=== PATIENT | female | born 1985 | race Caucasian/White ===

== ENCOUNTER 2017-02-18 10:00 | Emergency (ER) | payer OTHER ==
[2017-02-18 10:04] VITALS: RESP 18
[2017-02-18] MEDS ORDERED: SODIUM CHLORIDE 0.9% 1,000 ML IV ONE (10:31)
--- NOTE | 2017-02-18 10:49 | ED ---
General Adult HPI - General Chief complaint: Nausea/Vomiting/Diarrhea Stated complaint: Withdrawals. 12 wks preg Time Seen by Provider: 02/18/17 10:05 Source: patient, RN notes reviewed Mode of arrival: ambulatory Limitations: no limitations - History of Present Illness Initial comments: This is a 31-year-old female presents emergency department stating she has been weaning herself off of her Percocet over the last 2 weeks because she found she was . Patient states she is approximately 12 weeks . Patient states she has been awful shaky and that does not seem to be getting any better. Patient states she started with 4 Percocet a day and over 2 weeks she' s down to 1 Percocet a day. Patient states she is also nauseated and vomiting even though she has Zofran. Patient would like something to try to relax her but when I told her that most things are conjugate and she was understanding. Patient denies any pain patient denies any abdominal pain patient denies any pelvic pain patient denies any vaginal discharge or bleeding. Patient denies any back pain. Patient denies any recent fever chills or cough. Patient denies any shortness of breath. Patient denies any leg swelling or calf pain. - Related Data Home Medications Medication Instructions Recorded Confirmed Dextroamphetamine/Amphetamine 30 mg PO DAILY 01/05/16 02/18/17 [Adderall] [id number]-[id number] Acid 1 cap PO DAILY 02/18/17 02/18/17 [-U Capsule (formulary)] oxyCODONE-APAP 10-325MG [Percocet 1 tab PO TID PRN 02/18/17 02/18/17 10-325 mg] Allergies Allergy/AdvReac Type Severity Reaction Status Date / Time Iodinated Contrast- Oral and Allergy Unknown Verified 02/18/17 10:16 IV Dye hydrocodone [From [facility]] AdvReac Itching Verified 02/18/17 10:16 Review of Systems ROS Statement: Those systems with pertinent positive or pertinent negative responses have been documented in the HPI. ROS Other: All systems not noted in ROS Statement are negative. 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 Patient is nontoxic and well- hydrated and is in no acute distress. ENT: Neck is soft and supple. No significant lymphadenopathy is noted. Oropharynx is clear. Dry mucous membranes. Neck has full range of motion without eliciting any pain. EYES: The sclera were anicteric and conjunctiva were pink and moist. Extraocular movements were intact and pupils were equal round and reactive to light. Eyelids were unremarkable. PULMONARY: Unlabored respirations. Good breath sounds bilaterally. No audible rales rhonchi or wheezing was noted. CARDIOVASCULAR: There is a regular rate and rhythm without any murmurs gallops or rubs. ABDOMEN: Soft and nontender with normal bowel sounds. No palpable organomegaly was noted. There is no palpable pulsatile mass. SKIN: Skin is clear with no lesions or rashes and otherwise unremarkable. NEUROLOGIC: Patient is alert and oriented x3. Cranial nerves II through XII are grossly intact. Motor and sensory are also intact. Normal speech, volume and content. Symmetrical smile. MUSCULOSKELETAL: Normal extremities with adequate strength and full range of motion. No lower extremity swelling or edema. No calf tenderness. LYMPHATICS: No significant lymphadenopathy is noted PSYCHIATRIC: Normal psychiatric evaluation. Normal interpersonal interactions appears functionally intact in deals appropriately with others. No signs of depression. No signs of anxiety. Limitations: no limitations Course Vital Signs 02/18/17 10:02 Temperature 98.1 F Pulse Rate 111 H Respiratory 18 Rate Blood Pressure 140/90 O2 Sat by Pulse 100 Oximetry Medical Decision Making - Medical Decision Making I gave the patient a liter of fluid. And she felt considerably better she still worried about her withdrawal symptoms. - Lab Data Result diagrams: 02/18/17 10:46 02/18/17 10:46 Lab Results 02/18/17 02/18/17 Range/Units 10:46 10:46 WBC 7.7 (3.8-10.6) k/uL RBC 4.40 (3.80-5.40) m/uL Hgb 14.9 (11.4-16.0) gm/dL Hct 42.8 (34.0-46.0) % MCV 97.3 (80.0-100.0) fL MCH 33.8 (25.0-35.0) pg MCHC 34.7 (31.0-37.0) g/dL RDW 13.2 (11.5-15.5) % Plt Count 185 (150-450) k/uL Neutrophils % 74 % Lymphocytes % 19 % Monocytes % 6 % Eosinophils % 0 % Basophils % 0 % Neutrophils # 5.6 (1.3-7.7) k/uL Lymphocytes # 1.4 (1.0-4.8) k/uL Monocytes # 0.5 (0-1.0) k/uL Eosinophils # 0.0 (0-0.7) k/uL Basophils # 0.0 (0-0.2) k/uL Sodium 138 (137-145) mmol/L Potassium 4.3 (3.5-5.1) mmol/L Chloride 105 (98-107) mmol/L Carbon Dioxide 22 (22-30) mmol/L Anion Gap 11 mmol/L BUN 15 (7-17) mg/dL Creatinine 0.60 (0.52-1.04) mg/dL Est GFR (MDRD) Af Amer >60 (>60 ml/min/1.73 sqM) Est GFR (MDRD) Non-Af >60 (>60 ml/min/1.73 sqM) Glucose 85 (74-99) mg/dL Calcium 10.2 (8.4-10.2) mg/dL Total Bilirubin 0.6 (0.2-1.3) mg/dL AST 25 (14-36) U/L ALT 34 (9-52) U/L Alkaline Phosphatase 45 (38-126) U/L Total Protein 7.0 (6.3-8.2) g/dL Albumin 4.3 (3.5-5.0) g/dL Disposition Clinical Impression: Opiate withdrawal Disposition: HOME SELF-CARE Condition: Good Instructions: Opioid Withdrawal (ED) Referrals: Junior Olsen MD [Primary Care Provider] - 1-2 days Time of Disposition: 11:40
[2017-02-18 11:08] LABS: ALT 34 U/L (9-52); AST 25 U/L (14-36); Alkaline Phosphatase 45 U/L (38-126); Anion Gap 11 mmol/L; Blood Urea Nitrogen 15 mg/dL (7-17); Calcium 10.2 mg/dL (8.4-10.2); Carbon Dioxide 22 mmol/L (22-30); Chloride 105 mmol/L (98-107); Glucose 85 mg/dL (74-99); Non-African American GFR(MDRD) >60 (>60 ml/min/1.73 sqM); Potassium 4.3 mmol/L (3.5-5.1); Sodium 138 mmol/L (137-145); Total Bilirubin 0.6 mg/dL (0.2-1.3)
[2017-02-18 11:17] LABS: Basophils % (A) 0 %; CH 34.6; CHCM 35.7; Eosinophils % (A) 0 %; HCT 42.8 % (34.0-46.0); HGB 14.9 gm/dL (11.4-16.0); Luc # (Auto) 0.07; Luc % (Auto) 1; Lymphocytes # (A) 1.4 k/uL (1.0-4.8); Lymphocytes % (A) 19 %; MCH 33.8 pg (25.0-35.0); MCHC 34.7 g/dL (31.0-37.0); MCV 97.3 fL (80.0-100.0); Mean Platelet Volume 7.4; Monocytes # (A) 0.5 k/uL (0-1.0); Monocytes % (A) 6 %; Neutrophils # (A) 5.6 k/uL (1.3-7.7); Neutrophils % (A) 74 %; RDW 13.2 % (11.5-15.5); WBC 7.7 k/uL (3.8-10.6); WBC (Perox) 7.99
[2017-02-18 11:52] VITALS: BP 141/68; PULSE 102; TEMP 98.7
== END 2017-02-18 11:50 | disposition home or self-care (01) ==
LOC: EC 10:00
DX: O99.321 Drug use complicating pregnancy, first trimester (principal); F11.23 Opioid dependence with withdrawal; O21.9 Vomiting of pregnancy, unspecified; O99.341 Other mental disorders complicating pregnancy, first trimester; F90.9 Attention-deficit hyperactivity disorder, unspecified type; Z3A.12 12 weeks gestation of pregnancy; Z79.899 Other long term (current) drug therapy; Z91.041 Radiographic dye allergy status; Z88.5 Allergy status to narcotic agent
CPT/HCPCS: 36415; 80053; 85025; 96360; 99284

== ENCOUNTER → 2017-03-31 | Outpatient (CLI) | payer OTHER ==
[2017-04-01 01:25] LABS: Cardiolipin Ab IgG Interp NEGATIVE (NEGATIVE); Cardiolipin Ab IgM Interp NEGATIVE (NEGATIVE); Cardiolipin IgM Antibody 1.5 U/mL
--- NOTE | 2017-04-01 08:03 | US ---
EXAMINATION TYPE: US OB anatomy transabd DATE OF EXAM: 03/31/2017 COMPARISON: US HISTORY: O36.62X0 Large for dates second trimester TECHNIQUE: Transabdominal (TA) EXAM MEASUREMENTS: GESTATIONAL AGE / DATING Physician Established: (19 weeks/0 days) EDC: 08/25/2017 Dates by LMP: unknown Dates by First Scan: (19 weeks/0 days) EDC: 08/25/2017 Dates by Current Scan for: (19weeks/5 days) EDC: 08/20/2017 SURVEY IUP: Single PLACENTA: Anterior PREVIA: No previa CHAPINCITO: 14.2 cm Normal CERVICAL LENGTH (transabdominal: norm > 3.0cm): 4.8 cm BIOMETRY PRESENTATION: Breech BPD: 4.5 cm 19 weeks / 5 days HC: 17.0 cm 19 weeks / 5 days AC: 14.3 cm 19 weeks / 5 days FL: 3.0 cm 19 weeks / 2 days ESTIMATED WEIGHT IN GRAMS: 295 grams ESTIMATED WEIGHT IN LBS/OZ: 0 lbs. 10 oz. WEIGHT PERCENTAGE BASED ON ESTABLISHED DATE: 74 % HC/AC: 1.2 Normal FL/AC: 21% Normal HEART RATE: 146 bpm RHYTHM: Normal ANATOMY SEEN (within normal limits): * Lateral Vent (< 1 cm) 0.8 cm * Cisterna Magna (< 1.1 cm) 0.4 cm * Nuchal Fold (< 0.6 cm) 0.3 cm * Cerebellum (varies with age) 1.9 cm Choroid Plexus (bilateral) Midline Falx Cavus Septi Pellucidi Four Chamber Heart Outflow tracts: LVOT/RVOT Stomach Situs Nose / Lips Diaphragm Kidneys (bilateral) Bladder Cord Insert Three Vessel Cord Longitudinal Spine Transverse Spine Arms (bilateral) Legs (bilateral) growth according to dates. IMPRESSION: Viable of 19 weeks 5 days with an EDC of 08/20/2017.
[2017-04-02 11:40] LABS: APTT 39 Sec(s) (<43); Dilute Russell Viper Venom 38 Sec(s) (<44)
[2017-04-02 12:42] LABS: Alpha Fetoprotein (M.O.M) 0.92; B-HCG (M.O.M.) 0.18; Gestational Age (days) 0; Human Chorionic Gonadotropin 4.4 IU/mL; Inhibin A (M.O.M.) 0.44; Maternal Age at EDD (Yrs) 29; Smoker No; Unconjugated Estriol (M.O.M.) 0.81
== END | disposition home or self-care (01) ==
LOC: RADUSWWP 16:20
PROVIDERS: ATTEND Obstetrics & Gynecology
DX: O36.62X0 Maternal care for excessive fetal growth, second trimester, not applicable or unspecified (principal); Z3A.19 19 weeks gestation of pregnancy
CPT/HCPCS: 36415; 76811; 82105; 82677; 84702; 85613; 85730; 86146; 86147; 86336

== ENCOUNTER → 2017-05-22 | Outpatient (CLI) | payer OTHER ==
[2017-05-22 10:39] LABS: HCT 38.6 % (34.0-46.0); HGB 13.2 gm/dL (11.4-16.0); MCH 32.9 pg (25.0-35.0); MCHC 34.3 g/dL (31.0-37.0); MCV 95.9 fL (80.0-100.0); Mean Platelet Volume 7.5; Platelet Count 160 k/uL (150-450); RBC 4.02 m/uL (3.80-5.40); RDW 12.9 % (11.5-15.5); WBC 8.4 k/uL (3.8-10.6)
== END | disposition home or self-care (01) ==
LOC: LABWHC1 09:02
PROVIDERS: ATTEND Obstetrics & Gynecology
DX: Z34.82 Encounter for supervision of other normal pregnancy, second trimester (principal); Z3A.00 Weeks of gestation of pregnancy not specified
CPT/HCPCS: 36415; 82950; 85027; 86850